=== PATIENT | male | born 1950 | race Caucasian/White ===

== ENCOUNTER → 2016-12-04 | Day surgery (SDC) | payer MEDICARE, OTHER ==
[~2016-12-04] VITALS: Ht 185.4 cm; Wt 103.2 kg
[~2016-12-04] MED LIST: "\\\"PREP SPRAY\\\"-TIN4 OZ"; BENICAR HCT 201 EACH PO; BENICAR HCT 401 EAC1 PO; ECOTRIN325 MG PO; KRILL OIL 3001 EACH PO; LIPITOR10 MG PO; VITAMIN D-32000 UNIT PO
== END | disposition disaster alternative care site (69) ==
LOC: GPOC 12-02 09:00 → GEND 12-02 09:00
PROC: 0DBG8ZX Excision of Left Large Intestine, Via Natural or Artificial Opening Endoscopic, Diagnostic (ICD-10-PCS; principal; 2016-12-04)
DX: Z12.11 Encounter for screening for malignant neoplasm of colon (principal); D12.4 Benign neoplasm of descending colon; K57.30 Diverticulosis of large intestine without perforation or abscess without bleeding; I10 Essential (primary) hypertension; E78.00 Pure hypercholesterolemia, unspecified; E78.5 Hyperlipidemia, unspecified; Z95.0 Presence of cardiac pacemaker; Z79.82 Long term (current) use of aspirin; Z79.899 Other long term (current) drug therapy
CPT/HCPCS: J2001; J7030